=== PATIENT | male | born 1950 | race Caucasian/White ===

== ENCOUNTER 2017-01-01 13:31 | Emergency (ER) | payer OTHER ==
[~2017-01-01] VITALS: Ht 170.2 cm; Wt 78.0 kg
[~2017-01-01 13:31] MED LIST: AMLODIPINE BESYL5 M1; AMOX-CLAV 500-1 EACH PO; ASPIRIN EC325 MG PO; BELSOMRA10 MG PO; CARDURA8 M1 PO; CIPRO 500MG (E500 MG PO; FINASTERIDE5 M1 PO; FLEXERIL10 MG PO; LOPRESSOR50 M1 PO; LOSARTAN POTASS25 M1; METFORMIN HCL500 M3 PO; MUCINEX ER600 MG PO; OMEPRAZOLE40 M1 PO; OXYCODONE-ACET1 EACH PO; SYMBICORT 16010.2 GM INH; TIZANIDINE HCL2 M1 PO; TRAMADOL50 MG PO; VALIUM5 M2 PO; VITAMIN B-121000 MC3 PO; VITAMIN D31000 UNI2 PO; ZOLPIDEM TARTRA10 MG PO
--- NOTE | 2017-01-01 14:36 | ED GI/GU/ABDOMINAL COMPLAINT ---
History of Present Illness General Chief Complaint: Male Genitourinary Problems Stated Complaint: BLOOD IN URINE Source: patient, old records Exam Limitations: no limitations Vital Signs & Intake/Output Vital Signs & Intake/Output ED Intake and Output 01/02 0000 01/01 1200 Intake Total Output Total 50 Balance -50 Output, Urine 50 Patient 172 lb Weight Allergies Coded Allergies: ciprofloxacin (From CIPRO) (DIARHEA 04/16/16) Reconcile Medications Amlodipine Besylate (Unknown Strength) TABLET (Unknown Dose) UNKNOWN ( Reported) Budesonide/Formoterol Fumarate (Symbicort 160-4.5 Mcg Inhaler) 160 MCG-4.5 MCG/ ACTUATION HFA.AER.AD 2 PUF INH BID BREATHING PROBLEMS (Reported) Cholecalciferol (Vitamin D3) 1,000 UNIT TABLET 1 TAB PO DAILY SUPPLEMENT ( Reported) Cyanocobalamin (Vitamin B-12) 1,000 MCG TABLET 1 TAB PO DAILY SUIPPLEMENT ( Reported) Diazepam (Valium) 5 MG TABLET 1 TAB PO BIDP PRN SLEEP (Reported) Doxazosin Mesylate (Cardura) 8 MG TABLET 1 TAB PO DAILY PROSTATE (Reported) Finasteride 5 MG TABLET 1 TAB PO DAILY PROSTATE (Reported) Losartan Potassium (Unknown Strength) TABLET (Unknown Dose) UNKNOWN (Reported ) Metformin HCl 500 MG TABLET 1 TAB PO BID DIABETES (Reported) Metoprolol Tartrate (Lopressor) 50 MG TABLET 1 TAB PO TID HEART (Reported) Nitrofurantoin Monohyd/M-Cryst (Macrobid 100 MG Capsule) 100 MG CAPSULE 1 CAP PO BID uti with food Omeprazole 40 MG CAPSULE. 1 CAP PO DAILY GI (Reported) Suvorexant (Belsomra) 10 MG TABLET 1 TAB PO QPM SLEEP (Reported) Terazosin HCl 2 MG CAPSULE 1 CAP PO QPM UNKNOWN (Reported) Tizanidine HCl 2 MG TABLET 1 TAB PO DAILY MUSCLE SPASMS (Reported) Triage Note: 66 Y/O MALE C/O HEMATURIA SINCE FRIDAY. STATES HE IS SUPPOSED TO BE AT DR MENCHACA'S OFFICE AT 1515 TODAY FOR A PROCEDURE TO SEE WHY PT IS BLEEDING HOWEVER PT STATES HE CALLED AND WAS SENT TO ED DUE TO HIGH BLOOD PRESSURE. 176/95 IN TRIAGE. PT STATES HE IS ON MEDICATION FOR SAME AND MEDS WERE INCREASED YESTERDAY. PT STATES HE HAS TAKEN ALL OF HIS MEDICATIONS WITH NO CHANGE IN BLOOD PRESSURE Triage Nurses Notes Reviewed? yes Onset: Abrupt Duration: day(s): (2), constant Timing: recent history Quality/Severity: aching Severity Numbers: 3 Location: denies Radiation: no radiation Activities at Onset: none No Modifying Factors: none Associated Symptoms: denies HPI: 66-year-old male with history of prostate cancer hypertension, recently finished radiation June of this past year, TURP presents emergency room complaining of hematuria for the past 3 days. He states he was scheduled to see Dr. Menchaca at 3:15 today however came here after he was found to be hypertensive. On arrival patient denies any complaints note pain with urination burning urgency frequency. No penile scrotal pain no abdominal pain fever chills no nausea or vomiting. There are no modifying factors or associated symptoms otherwise no urinary retention (DINH ARITA) Past History Travel History Traveled to [place] past 21 day No Medical History Any Pertinent Medical History? 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 No (DINH ARITA) Review of Systems Review of Systems Constitutional: Reports: see HPI. All Other Systems: Reviewed and Negative Comments Review of systems: See HPI, All other systems negative. Constitutional, no chills no fever, no malaise HEENT: no sore throat no congestion, no ear pain Cardiovascular: No chest pain , no palpitation Skin, no jaundice no rashes, no change in skin Respiratory: No dyspnea no cough no sputum GI: No nausea no vomiting, no diarrhea, : No dysuria hematuria, Muscle skeletal: No joint pain, no joint swelling, no back pain, no neck pain, Neurologic: no headache Psych: No stress no anxiety Heme/endocrine: No bruising no bleeding Immunology: No lymphadenopathy, (DINH ARITA) Physical Exam Physical Exam General Appearance: well developed/nourished, alert, awake Gastrointestinal: normal bowel sounds, soft, non-tender Comments: Well-developed well-nourished patient in no apparent distress. HEENT: Atraumatic, extraocular motion intact Neck: Supple, FROM, no lymphadenopathy Back: FROM, Nontender Cardiovascular: Regular rate and rhythms no murmurs rubs or gallops, Respiratory: Chest nontender.There were no bony deformities, no asymmetry. No respiratory distress. Patient speaking in full complete sentences. Breath sounds clear to auscultation bilaterally: NO W/R/R Extremities: full range of motion Neuro: Alert and oriented x3 Skin: Warm & dry;No appreciable rash on exposed skin Psych: Mood affect normal, normal memory normal judgment. Core Measures ACS in differential dx? No Severe Sepsis Present: No Septic Shock Present: No (DINH ARITA) Progress Differential Diagnosis: ureterolithiasis, urinary retention, urethritis, UTI/ pyelo, malignancy Plan of Care: Orders Procedure Date/time Status EKG 01/01 145 Active Add-on Test (ER Only) 01/01 1420 Active CULTURE,URINE 01/01 1344 Active URINALYSIS 01/01 1340 Complete Laboratory Tests 01/01/17 1344: Urine Color BLDY H, Urine Clarity TURBD H, Urine pH 6.5, Ur Specific [place] 1.025, Urine Protein >=300 H, Urine Ketones 15 H, Urine Nitrite POS H, Urine Bilirubin NEG@ICTO, Urine Urobilinogen 4.0 H, Ur Leukocyte Esterase MOD H, Ur Microscopic SEDIMENT EXAMINED, Urine RBC PACKD H, Urine WBC 3-5 H, Micro UA Comment , Urine Hemoglobin MOD H, Urine Glucose NEG Microbiology 01/01 1344 URINE ROUT: Urine Culture - RECD Case discussed with Dr. Menchaca who advised the patient to call Central scheduling a day to see what time his procedural tomorrow morning I discussed with patient plan of care and need for nothing by mouth status patient has copy of EKG performed yesterday and his primary care physician's office. Prescription for Macrobid called in advise return anytime sooner for any concerns pain difficulty urinating fever chills or any other concerns, patient feels couple this plan cleared for discharge (DINH ARITA) Initial ED EKG: none (DINH ARITA) Departure Departure Time of Disposition: 1450 Disposition: HOME OR SELF CARE Condition: Stable Clinical Impression Primary Impression: Hematuria Referrals: ANGIE JOSUE,JUAN CARLOS S. (PCP/Family) PABLO MENCHACA MD Additional Instructions: Follow-up central scheduling today at [phone] to find out what time your procedure will be tomorrow here at [facility]. Do not eat or drink anything after midnight. Macrobid as directed this was sent to your pharmacy. Your blood pressure was 134/72 here in the ER. Departure Forms: Customer Survey General Discharge Information Prescriptions: Current Visit Scripts Nitrofurantoin Monohyd/M-Cryst (Macrobid 100 MG Capsule) 1 CAP PO BID #10 CAP with food (DINH ARITA) PA/LOOPING MACHINE OPERATOR Co-Sign Statement Statement: ED Attending supervision documentation- X I saw and evaluated the patient. I have also reviewed all the pertinent lab results and diagnostic results. I agree with the findings and the plan of care as documented in the PA's/LOOPING MACHINE OPERATOR's documentation. [] I have reviewed the ED Record and agree with the PA's/LOOPING MACHINE OPERATOR's documentation. [] Additions or exceptions (if any) to the PAs/LOOPING MACHINE OPERATOR's note and plan are summarized below: [] (RIGO JOSUE,JEROME)
[2017-01-01 14:37] VITALS: BP 134/72
[2017-01-01] MEDS ORDERED: TERAZOSIN HCL2 M1 PO (14:50)
[2017-01-01] MEDS ORDERED: MACROBID 100 M100 MG PO (14:56)
== END 2017-01-01 15:00 ==
LOC: ERH 13:31
DX: R31.9 Hematuria, unspecified (principal)
CPT/HCPCS: 81001; 87086

== ENCOUNTER → 2018-06-18 | Day surgery (SDC) | payer OTHER ==
[~2018-06-18] VITALS: Ht 170.2 cm; Wt 79.8 kg
[~2018-06-18] MED LIST changes: +MACROBID 100 M100 MG PO; +TERAZOSIN HCL2 M1 PO
--- NOTE | 2018-06-19 07:03 | Operative Report ---
Operative/Inv Procedure Report Surgery Date: 06/18/18 Name of Procedure: cystsocopy: removal of bladder stone, revision turp Pre-Operative Diagnosis: bladder stone with gross hematuria and intermittent obstruction Post-Operative Diagnosis: same Estimated Blood Loss: less than 50ml Surgeon/Winch Runner: Huey Menchaca MD Anesthesia: laryngeal mask airway Specimens: small prostate chip and bladder stone Complications: none Operative/Procedure Note Note: The patient was taken to the operating room and placed on the OR table in supine position. Timeout was performed with the patient awake to confirm patient's identity, procedure, laterality, anesthesia, antibiotics, and other pertinent perioperative information. After anesthesia and adequate antibiotics, the patient was then placed lithotomy stirrups draped and prepped in usual surgical fashion. A 22 Sammarinese cystoscope sheath with a 30 angle lens was inserted without significant difficulty. Upon entering the prostatic urethra, the prostate was noted to have bladder neck scarring, due to radiation, and a spiculated stone lodged in the prostate alissa. The bladder was noted to be severely trabeculated with multiple cellules. No evidence of tumor was seen. LASER - YAG was on standby: with stone basket, I was able to grab the stone and extract it gently from the bladder nect. At this point, the laser was disengaged. The cystoscope was exchanged for a standard TURP set in order to gently open the bladder necl scar/contracture. The 22 fr. loop was extended and small Bladder neck resection was perfomed to open the alissa enough, so that the 26fr scope would easily pass into the bladder. Ellix evacuation was performed to extract the chips , which were sent to pathology. Spot cauterization of the bladder neck was performed with good hemostatis. A 22 Sammarinese Simon catheter was inserted without difficulty draining clear fluids. THe simon will be removed in RR. The patient tolerated the procedure well, and was then taken the recovery room in satisfactory. He is discharged home with pain medication and antibiotics, and to follow up in 2 weeks' time. Discharge Disposition: PACU CC: Huey Menchaca MD
== END ==
LOC: STS 02:13
DX: R31.0 Gross hematuria (principal); N21.0 Calculus in bladder; N32.89 Other specified disorders of bladder; Z85.46 Personal history of malignant neoplasm of prostate; F17.200 Nicotine dependence, unspecified, uncomplicated; I10 Essential (primary) hypertension; J44.9 Chronic obstructive pulmonary disease, unspecified; Z79.82 Long term (current) use of aspirin
CPT/HCPCS: 93005; 93010; J0131; J2250